=== PATIENT | female | born 1980 ===

== ENCOUNTER 2020-02-19 21:30 | Emergency (ER) | payer OTHER ==
[~2020-02-19] VITALS: Ht 154.9 cm; Wt 70.3 kg
[2020-02-19 21:30] VITALS: BP 148/87
[2020-02-19] MEDS ORDERED: IBUPROFEN 600 MG TAB PO STA (21:39)
[2020-02-19] MEDS ORDERED: AMOXIL/CLAVULANATE 875/125 MG 1 TAB PO STA (21:39)
[2020-02-19] MEDS ORDERED: ACETAMINOPHEN 325 MG TAB PO SCH (22:47)
[2020-02-19] MEDS ORDERED: BACITRACIN OINT 500 UNITS/GM PKT TP ONE (22:49)
[2020-02-19] MEDS ORDERED: BACITRACIN OINT 500 UNITS/GM PKT TP SCH (22:50)
[2020-02-19 23:00] VITALS: BP 148/87
== END 2020-02-19 23:36 | disposition home or self-care (01) ==
LOC: MED 21:30 → EDSEX 21:30 → EDBD 21:30 → MED 23:36
DX: S61.452A Open bite of left hand, initial encounter (principal); Y04.1XXA Assault by human bite, initial encounter; Y93.89 Activity, other specified; Y92.89 Other specified places as the place of occurrence of the external cause; Y99.8 Other external cause status
CPT/HCPCS: 73130; 90471; 90715; 99283; Q0092

== ENCOUNTER 2023-04-29 19:06 | Emergency (ER) | payer OTHER ==
[~2023-04-29] VITALS: Ht 162.6 cm; Wt 81.6 kg
[2023-04-29 19:17] VITALS: BP 141/91; PULSE 62; RESP 18; TEMP 98.1; O2SAT 98
[2023-04-29] MEDS ORDERED: ONDANSETRON 4 MG/2 ML VIAL IVP ONE (20:00)
[2023-04-29] MEDS ORDERED: NACL 0.9% 1,000 ML IV ONE (20:00)
[2023-04-29] MEDS ORDERED: PROCHLORPERAZINE 10 MG/2 ML VIAL IVP ONE (20:00)
[2023-04-29 20:59] LABS: FLU A ANTIGEN negative (NEGATIVE); FLU B ANTIGEN NEGATIVE (NEGATIVE)
[2023-04-29] MEDS ORDERED: KETOROLAC 30 MG/ML VIAL IVP ONE (21:40)
[2023-04-29] MEDS ORDERED: IBUP-2218 PO (21:47)
[2023-04-29] MEDS ORDERED: ONDA-188 SL (21:47)
[2023-04-29 22:52] VITALS: BP 141/91; PULSE 62; RESP 18; TEMP 98.1; O2SAT 98
== END 2023-04-29 22:52 | disposition home or self-care (01) ==
LOC: MED 19:06
DX: A08.4 Viral intestinal infection, unspecified (principal); R51.9 Headache, unspecified; Z20.822 Contact with and (suspected) exposure to COVID-19; Z79.899 Other long term (current) drug therapy; Z79.2 Long term (current) use of antibiotics
CPT/HCPCS: 70450; 87426; 87804; 96361; 96374; 96375; 99285; J0780; J1885; J2405; J7030